=== PATIENT | female | born 1955 | race Caucasian/White ===

== ENCOUNTER 2020-03-05 07:19 | Outpatient (CLI) | payer OTHER ==
[~2020-03-05 07:19] MED LIST: AVAPRO300 MG; AVAPRO300 MG PO; CARDURA8 MG; CARDURA8 MG PO; FORTAMET1000 MG; FORTAMET1000 MG PO; INTEGRA F CAPS1 EACH PO; TOPROL XL200 MG; TOPROL XL200 MG PO; VITAMIN B-121000 MC2 SL; VITAMIN B-650 MG PO
== END 2020-03-05 07:32 | disposition home or self-care (01) ==
LOC: LAB 07:19
PROVIDERS: ATTEND Internal Medicine
DX: E11.9 Type 2 diabetes mellitus without complications (principal)

== ENCOUNTER 2020-03-28 06:00 | Day surgery (SDC) | payer OTHER | END 2020-03-28 13:50 | disposition home or self-care (01) | LOC: CIR.AMB 06:00 | PROVIDERS: ATTEND Urology | DX: N13.1 Hydronephrosis with ureteral stricture, not elsewhere classified (principal); Z20.828 Contact with and (suspected) exposure to other viral communicable diseases ==

== ENCOUNTER → 2020-09-26 | Emergency (ER) | payer OTHER ==
[~2020-09-26] VITALS: Ht 152.4 cm; Wt 90.7 kg
== END | disposition left against medical advice (07) ==
LOC: ER 20:54
DX: Z53.21 Procedure and treatment not carried out due to patient leaving prior to being seen by health care provider (principal)